=== PATIENT | male | born 1960 | race Hispanic/Latino ===

== ENCOUNTER → 2017-10-30 | Outpatient (CLI) | payer MEDICAID ==
[~2017-10-30] MED LIST: ASPI-1181 PO; ATOR40TA71 PO; BACL10TA PO; CARV6.25 PO; CLON1TAB5 PO; CLOP75TA32 PO; FENO145T37 PO; GABA-531 PO; GLYB5TAB8 PO; INSU300I SQ; LOSA100T29 PO; METF500T6 PO; OMEG-98 PO; PANT40TA25 PO; TAMS0.4C32 PO; VENL-63 PO
== END | disposition home or self-care (01) ==
LOC: RAH 11:41
PROVIDERS: ATTEND Physical Medicine & Rehabilitation
DX: M54.16 Radiculopathy, lumbar region (principal); D18.09 Hemangioma of other sites
CPT/HCPCS: 72148

== ENCOUNTER → 2018-11-21 | Outpatient (CLI) | payer MEDICAID ==
[~2018-11-21] MED LIST changes: +ALBUTEROL SULFATE 0.083% 2.5 MG/3 ML INH IH ONE; +CLON1TAB12 PO; -CLON1TAB5 PO; -LOSA100T29 PO; +LOSA100T58 PO; +METF-444 PO; -METF500T6 PO
== END | disposition home or self-care (01) ==
LOC: RESP 08:09
PROVIDERS: ATTEND Internal Medicine Cardiovascular Disease
DX: J98.8 Other specified respiratory disorders (principal); J45.909 Unspecified asthma, uncomplicated; F17.210 Nicotine dependence, cigarettes, uncomplicated
CPT/HCPCS: 94060; 94727; 94729

== ENCOUNTER → 2018-12-07 | Outpatient (CLI) | payer MEDICAID ==
[~2018-12-07] MED LIST changes: -ALBUTEROL SULFATE 0.083% 2.5 MG/3 ML INH IH ONE
== END | disposition home or self-care (01) ==
LOC: SHCH 07:56
PROVIDERS: ATTEND Internal Medicine Cardiovascular Disease
DX: I11.9 Hypertensive heart disease without heart failure (principal); I35.8 Other nonrheumatic aortic valve disorders
CPT/HCPCS: 93306

== ENCOUNTER → 2018-12-14 | Outpatient (CLI) | payer MEDICAID ==
[~2018-12-14] VITALS: Ht 170.2 cm; Wt 100.2 kg
[~2018-12-14] MED LIST changes: +REGADENOSON 0.4 MG/5 ML PF SYG IVP SCH
== END | disposition home or self-care (01) ==
LOC: SHCH 08:10
PROVIDERS: ATTEND Internal Medicine Cardiovascular Disease
DX: I10 Essential (primary) hypertension (principal); I25.119 Atherosclerotic heart disease of native coronary artery with unspecified angina pectoris
CPT/HCPCS: 78452; 93017; 96374; A9500 ×2; J2785

== ENCOUNTER 2019-01-29 09:03 | Day surgery (SDC) | payer MEDICAID ==
[2019-01-24 11:15] VITALS: BP 149/83
[2019-01-24 11:22] LABS: BASOPHILS % (AUTO) 0.6 % (0.0-5.0); EOSINOPHILS % (AUTO) 1.3 % (0.0-8.0); HEMATOCRIT 42.1 % (42-54); LYMPHOCYTES % (AUTO) 18.3 % (21.0-51.0); MEAN CORPUSCULAR HEMOGLOBIN 28.3 pg (27.0-33.0); MEAN CORPUSCULAR HGB CONC 33.6 g/dL (32.0-36.0); MEAN CORPUSCULAR VOLUME 84.3 fL (79-99); MONOCYTES % (AUTO) 6.8 % (3.0-13.0); PLATELET COUNT (AUTO) 228 K/uL (130-400); RED CELL DISTRIBUTION WIDTH 14.4 % (11.0-15.5); WHITE BLOOD COUNT (AUTO) 8.3 K/uL (4.8-10.8)
[2019-01-24 11:23] LABS: APPEARANCE,URINE Clear (CLEAR); BILIRUBIN,URINE Negative (NEGATIVE); COLOR,URINE Yellow (YELLOW); GLUCOSE, URINE (UA) TRACE mg/dL (NEGATIVE); KETONES,URINE Negative (NEGATIVE); LEUKOCYTE ESTERASE ,URINE Negative (NEGATIVE); NITRATE,URINE Negative (NEGATIVE); OCCULT BLOOD,URINE Negative (NEGATIVE); PH,URINE 6.5 (5.0-8.0); PROTEIN,URINE Trace mg/dL (NEGATIVE)
[2019-01-24 11:27] LABS: CREATININE 0.7 mg/dL (0.5-1.5); POTASSIUM 4.3 mmol/L (3.5-5.1)
[2019-01-24 11:34] LABS: INR 0.98 (0.85-1.15); PARTIAL THROMBOPLASTIN TIME 26.8 SEC (26.3-35.5); PROTHROMBIN TIME 10.3 SEC (9.6-11.6)
[2019-01-24 12:06] LABS: BACTERIA,URINE None Seen /HPF (None Seen); RBC,URINE 0-1 /HPF (0-1); SQUAMOUS EPITHELIAL CELL,UR 0-2 /HPF (0-2); WBC,URINE 0-1 /HPF (0-1)
[~2019-01-29] VITALS: Ht 167.6 cm; Wt 99.3 kg
[2019-01-29] VITALS (12 sets, daily range): BP systolic 123–173; BP diastolic 63–88
[~2019-01-29 09:03] MED LIST changes: +ALBU8.5H8 IH; -ASPI-1181 PO; -BACL10TA PO; -CLON1TAB12 PO; +INSU100V12 SQ; -INSU300I SQ; +LORA1TAB3 PO; -METF-444 PO; +METF-446 PO; -OMEG-98 PO; -PANT40TA25 PO; -REGADENOSON 0.4 MG/5 ML PF SYG IVP SCH; +ROPI0.257 PO; +SODIUM CHLORIDE 0.9% 500ML 500 ML IV SCH; +TRAZ-185 PO; -VENL-63 PO; +VENL225T3 PO; +omega 3 PO; +vitamin d2 PO
[2019-01-29] MEDS ORDERED: SODIUM CHLORIDE 0.9% 1000ML 1,000 ML IV ONE (09:25)
[2019-01-29] MEDS ORDERED: IOHEXOL 350 MG/ML 100ML INFUS..BTL IV ONE (15:25)
[2019-01-29] MEDS ORDERED: IOHEXOL-350 50ML VIAL IV ONE (15:25)
[2019-01-29] MEDS ORDERED: LIDOCAINE HCL 2% 20ML ONE (15:25)
[2019-01-29] MEDS ORDERED: HEPARIN SODIUM 1000UNIT/ML 10ML VIAL ONE (15:25)
[2019-01-29] MEDS ORDERED: NITROGLYCERIN 5 MG/ML 10 ML VIAL IV ONE (15:25)
[2019-01-29] MEDS ORDERED: SODIUM BICARB 50MEQ 50ML VIAL ONE (15:25)
[2019-01-29] MEDS ORDERED: MEPERIDINE-PF 25 MG/ML SYG ONE ×2 (15:40→15:54)
[2019-01-29] MEDS ORDERED: MIDAZOLAM HCL 1 MG/ML 2ML VIAL ONE ×2 (15:40→15:54)
[2019-01-29] MEDS ORDERED: SODIUM CHLORIDE 0.9% 1000ML 1,000 ML IV SCH (16:24)
[2019-01-29] MEDS ORDERED: INSULIN HUMULIN R 100 UNIT/ML 3ML SQ SCH (16:30)
[2019-01-29] MEDS ORDERED: DEXTROSE 50%-WATER 50 ML DISP.SYRIN IV PRN (16:30)
[2019-01-29] MEDS ORDERED: GLUCAGON 1MG KIT 1 MG ML IM PRN (16:30)
[2019-01-29] MEDS ORDERED: ACETAMINOPHEN-CODEINE 300/30MG TAB PO PRN ×2 (16:30)
--- NOTE | 2019-01-29 20:50 | NUR ---
Pt discharged home, tolerating fluids/solids well, ambulating well with cane with stand by assistance, voided large amount prior to discharge. Dressing to right groin remains soft, dry, clean and intact s evidence of bleeding. Pt and cousin instructed in routine and emergency care of cath site. Pt denies any severe pain, nausea or dizziness. Prescription given to cousin. Pt and cousin report no further questions at this time.
== END 2019-01-29 20:50 | disposition home or self-care (01) ==
LOC: DAH 09:03
PROVIDERS: ATTEND Internal Medicine Cardiovascular Disease
DX: I25.118 Atherosclerotic heart disease of native coronary artery with other forms of angina pectoris (principal); I34.0 Nonrheumatic mitral (valve) insufficiency; F41.9 Anxiety disorder, unspecified; F32.9 Major depressive disorder, single episode, unspecified; K21.9 Gastro-esophageal reflux disease without esophagitis; J45.909 Unspecified asthma, uncomplicated; E66.9 Obesity, unspecified; Z88.8 Allergy status to other drugs, medicaments and biological substances; Z79.4 Long term (current) use of insulin; Z79.899 Other long term (current) drug therapy; Z95.5 Presence of coronary angioplasty implant and graft; Z79.84 Long term (current) use of oral hypoglycemic drugs; Z68.35 Body mass index [BMI] 35.0-35.9, adult; Z87.891 Personal history of nicotine dependence; Z83.3 Family history of diabetes mellitus; Z82.49 Family history of ischemic heart disease and other diseases of the circulatory system
CPT/HCPCS: 36415; 71045; 80048; 81001; 82948 ×3; 85025; 85610; 85730; 93005; 93459; A4215; A4216; A4221; A4222; A4223 ×3; A4606; C1760; C1894; J1644; J2175 ×2; J2250 ×2; J3490 ×3; J7030; Q9965; Q9967 ×2; 99156; 99157

== ENCOUNTER → 2021-03-11 | Outpatient (CLI) | payer MEDICAID ==
[~2021-03-11] MED LIST changes: +FENO145T26 PO; -FENO145T37 PO; -SODIUM CHLORIDE 0.9% 500ML 500 ML IV SCH
== END | disposition home or self-care (01) ==
LOC: SHCH 10:08
PROVIDERS: ATTEND Internal Medicine Cardiovascular Disease
DX: I10 Essential (primary) hypertension (principal)
CPT/HCPCS: 93975

== ENCOUNTER → 2021-03-18 | Outpatient (CLI) | payer MEDICAID ==
[2021-03-18 14:44] LABS: CREATININE 0.7 mg/dL (0.5-1.5)
== END | disposition home or self-care (01) ==
LOC: LAB 12:59
PROVIDERS: ATTEND Internal Medicine Cardiovascular Disease
DX: I25.810 Atherosclerosis of coronary artery bypass graft(s) without angina pectoris (principal); I25.5 Ischemic cardiomyopathy
CPT/HCPCS: 36415; 82565; 84520

== ENCOUNTER → 2022-07-20 | Outpatient (CLI) | payer MEDICAID ==
[~2022-07-20] MED LIST changes: +AMLO5TAB4 PO; +ASPI-1005 PO; +FURO40TA7 PO; +HYDR-3420 PO; +SACU1TAB7 PO
== END | disposition home or self-care (01) ==
LOC: SHCH 09:50
PROVIDERS: ATTEND Internal Medicine Cardiovascular Disease
DX: I08.0 Rheumatic disorders of both mitral and aortic valves (principal); I25.10 Atherosclerotic heart disease of native coronary artery without angina pectoris; I10 Essential (primary) hypertension; E78.5 Hyperlipidemia, unspecified; E11.9 Type 2 diabetes mellitus without complications
CPT/HCPCS: 93306

== ENCOUNTER → 2022-07-25 | Outpatient (CLI) | payer MEDICAID ==
[~2022-07-25] MED LIST changes: +REGADENOSON 0.4 MG/5 ML PF SYG IVP SCH
== END | disposition home or self-care (01) ==
LOC: SHCH 07:38
PROVIDERS: ATTEND Internal Medicine Cardiovascular Disease
DX: I51.7 Cardiomegaly (principal); I25.10 Atherosclerotic heart disease of native coronary artery without angina pectoris
CPT/HCPCS: 78452; 96374; 93017; J2785; A9500 ×2

== ENCOUNTER 2022-10-07 07:24 | Inpatient (IN) | payer MEDICAID ==
[2022-10-05 11:50] VITALS: BP 140/66
[2022-10-05 11:58] LABS: BASOPHILS % (AUTO) 0.4 % (0.0-5.0); EOSINOPHILS % (AUTO) 2.6 % (0.0-8.0); HEMATOCRIT 39.7 % (42-54); LYMPHOCYTES % (AUTO) 26.2 % (21.0-51.0); MEAN CORPUSCULAR HEMOGLOBIN 27.6 pg (27.0-33.0); MEAN CORPUSCULAR HGB CONC 31.7 g/dL (32.0-36.0); MEAN CORPUSCULAR VOLUME 87.1 fL (79-99); MONOCYTES % (AUTO) 8.8 % (3.0-13.0); NEUTROPHILS % (AUTO) 61.7 % (40.0-77.0); PLATELET COUNT (AUTO) 207 K/uL (130-400); RED BLOOD CELL COUNT(AUTO) 4.56 MIL/uL (4.50-6.20); RED CELL DISTRIBUTION WIDTH 15.1 % (11.0-15.5)
[2022-10-05 12:05] LABS: APPEARANCE,URINE CLEAR (CLEAR); BILIRUBIN,URINE NEGATIVE (NEGATIVE); COLOR,URINE COLORLESS (YELLOW); GLUCOSE, URINE (UA) 500 mg/dL (NEGATIVE); KETONES,URINE NEGATIVE (NEGATIVE); LEUKOCYTE ESTERASE ,URINE NEGATIVE Leu/uL (NEGATIVE); NITRATE,URINE NEGATIVE (NEGATIVE); OCCULT BLOOD,URINE NEGATIVE (NEGATIVE); PROTEIN,URINE NEGATIVE (NEGATIVE); UROBILINOGEN,URINE 0.2 mg/dL (0.2-1.0)
[2022-10-05 12:09] LABS: INR 0.99 (0.85-1.15); PROTHROMBIN TIME 10.8 SEC (9.6-11.6)
[2022-10-05 12:10] LABS: PARTIAL THROMBOPLASTIN TIME 27.9 SEC (26.3-35.5)
[2022-10-05 12:16] LABS: RBC,URINE 0-1 /HPF (0-1); SQUAMOUS EPITHELIAL CELL,UR RARE /HPF (0-2); WBC,URINE 0-1 /HPF (0-1)
[2022-10-05 12:18] LABS: B-TYPE NATRIURETIC PEPTIDE 666 pg/mL (0-100)
[~2022-10-07] VITALS: Ht 170.2 cm; Wt 93.0 kg
[2022-10-07] VITALS (17 sets, daily range): BP systolic 119–164; BP diastolic 63–84
[~2022-10-07 07:24] MED LIST changes: -ALBU8.5H8 IH; +ALBU90AE2 IH; +AMLO-258 PO; -AMLO5TAB4 PO; +ATOR10TA69 PO; -ATOR40TA71 PO; +BUME1TAB6 PO; +CARV25TA PO; -CARV6.25 PO; +EMPA25TA PO; +ERGOCALCIFEROL PO; +FAMO20TA8 PO; -FENO145T26 PO; -FURO40TA7 PO; -GABA-531 PO; +GABA300C PO; +GLIM4TAB36 PO; -GLYB5TAB8 PO; +HYDR-3830 PO; -INSU100V12 SQ; -LORA1TAB3 PO; +MIRA50TA PO; -REGADENOSON 0.4 MG/5 ML PF SYG IVP SCH; -ROPI0.257 PO; +ROPI1TAB13 PO; +SEMA0.258 SQ; +SERT-439 PO; +TAMS-1 PO; -TAMS0.4C32 PO; -TRAZ-185 PO; +TRAZ-187 PO; -VENL225T3 PO; -omega 3 PO; -vitamin d2 PO
[2022-10-07] MEDS ORDERED: 0.9%NACL 1000ML 1,000 ML IV ONE (08:44)
[2022-10-07] MEDS ORDERED: LIDOCAINE HCL 400MG/20ML VIAL ONE (10:57)
[2022-10-07] MEDS ORDERED: MEPERIDINE-PF 25 MG/ML SYG ONE ×4 (10:57→14:03)
[2022-10-07] MEDS ORDERED: IOHEXOL-350 75 ML VIAL IV ONE ×2 (10:57→12:17)
[2022-10-07] MEDS ORDERED: NITROGLYCERIN 50MG VIAL ONE (10:57)
[2022-10-07] MEDS ORDERED: MIDAZOLAM HCL 1 MG/ML 2ML VIAL ONE ×4 (10:57→14:03)
[2022-10-07] MEDS ORDERED: SODIUM BICARB 50MEQ 50ML VIAL 50 ML ONE (10:57)
[2022-10-07] MEDS ORDERED: HEPARIN 10,000 UNIT/10ML (1,000 UNIT/ML) VIAL ONE ×2 (10:58→13:14)
[2022-10-07] MEDS ORDERED: TEMAZEPAM 30 MG CAP PO PRN (14:00)
[2022-10-07] MEDS ORDERED: NITROGLYCERIN 50MG/D5W 250ML 1 BOT IV PRN (14:00)
[2022-10-07] MEDS ORDERED: ACETAMINOPHEN WITH CODEINE 1 TAB TAB PO PRN ×2 (14:00)
[2022-10-07] MEDS ORDERED: ONDANSETRON 4MG INJ IVP PRN (14:00)
[2022-10-07] MEDS ORDERED: HYDROXYZINE 10 MG TABLET PO PRN (14:30)
[2022-10-07] MEDS ORDERED: ALBUTEROL INHALER 90MCG/INH IH PRN (14:30)
[2022-10-07] MEDS: TAMSULOSIN HCL 0.4 MG CAP.ER.24H PO SCH (20:06)
[2022-10-07] MEDS: CARVEDILOL 25 MG TABLET PO SCH (20:06)
[2022-10-07] MEDS: HYDRALAZINE HCL 10 MG TABLET PO SCH (20:06)
[2022-10-07] MEDS: ROPINIROLE HCL 1 MG TABLET PO SCH (20:06)
[2022-10-07] MEDS: BUMETANIDE 1 MG TAB PO SCH (20:06)
[2022-10-07] MEDS: FAMOTIDINE 20MG TAB PO SCH (20:06)
[2022-10-07] MEDS: GABAPENTIN 300 MG CAPSULE PO SCH (20:07)
[2022-10-07] MEDS: TRAZODONE HCL 100 MG TABLET PO SCH (20:09)
[2022-10-07] MEDS ORDERED: SACUBITRIL/VALSARTAN 1 EACH TABLET PO SCH (21:00)
[2022-10-07] MEDS: INSULIN HUMULIN R 100 UNIT/ML 3ML SQ SCH (21:00)
[2022-10-07] MEDS ORDERED: GLIMEPIRIDE 2 MG TABLET PO SCH (21:00)
[2022-10-08] VITALS (20 sets, daily range): BP systolic 100–146; BP diastolic 65–99
[2022-10-08 04:16] LABS: BASOPHILS % (AUTO) 0.3 % (0.0-5.0); EOSINOPHILS % (AUTO) 1.3 % (0.0-8.0); HEMATOCRIT 37.8 % (42-54); LYMPHOCYTES % (AUTO) 14.9 % (21.0-51.0); MEAN CORPUSCULAR HEMOGLOBIN 27.1 pg (27.0-33.0); MEAN CORPUSCULAR HGB CONC 31.7 g/dL (32.0-36.0); MEAN CORPUSCULAR VOLUME 85.5 fL (79-99); MONOCYTES % (AUTO) 10.3 % (3.0-13.0); NEUTROPHILS % (AUTO) 72.7 % (40.0-77.0); PLATELET COUNT (AUTO) 207 K/uL (130-400); RED BLOOD CELL COUNT(AUTO) 4.42 MIL/uL (4.50-6.20); RED CELL DISTRIBUTION WIDTH 14.6 % (11.0-15.5); WHITE BLOOD COUNT (AUTO) 7.9 K/uL (4.8-10.8)
[2022-10-08 04:30] LABS: ALBUMIN 3.6 g/dL (3.5-5.0); CREATININE 1.1 mg/dL (0.5-1.5); MAGNESIUM 2.3 mg/dL (1.80-2.40); TOTAL PROTEIN, SERUM 6.7 g/dL (6.0-8.3)
[2022-10-08 05:05] LABS: HEMOGLOBIN A1C 8.4 % (4.0-6.0)
[2022-10-08] MEDS: INSULIN HUMULIN R 100 UNIT/ML 3ML SQ SCH ×4 (07:30→21:00)
[2022-10-08] MEDS: CLOPIDOGREL 75MG TAB PO SCH (08:04)
[2022-10-08] MEDS: SERTRALINE HCL 50 MG TABLET PO SCH (08:04)
[2022-10-08] MEDS: TAMSULOSIN HCL 0.4 MG CAP.ER.24H PO SCH ×2 (08:04→20:58)
[2022-10-08] MEDS: ASPIRIN 81MG CHEW TAB PO SCH (08:04)
[2022-10-08] MEDS: FAMOTIDINE 20MG TAB PO SCH ×2 (08:04→20:59)
[2022-10-08] MEDS: PANTOPRAZOLE 40 MG TAB DR PO SCH (08:04)
[2022-10-08] MEDS: CARVEDILOL 25 MG TABLET PO SCH ×2 (08:05→20:59)
[2022-10-08] MEDS: AMLODIPINE 5 MG TAB PO SCH (08:05)
[2022-10-08] MEDS: HYDRALAZINE HCL 10 MG TABLET PO SCH ×2 (08:06→14:29)
[2022-10-08] MEDS: GABAPENTIN 300 MG CAPSULE PO SCH ×3 (08:06→20:58)
[2022-10-08] MEDS: BUMETANIDE 1 MG TAB PO SCH ×2 (08:11→20:58)
[2022-10-08] MEDS: MYRBETRIQ 50 MG PO SCH (08:15)
[2022-10-08] MEDS ORDERED: LOSARTAN 100 MG TABLET PO SCH (09:00)
[2022-10-08 15:44] LABS: MAGNESIUM 2.2 mg/dL (1.80-2.40); POTASSIUM 3.4 mmol/L (3.5-5.1)
[2022-10-08] MEDS ORDERED: KCL 20 MEQ ERTAB PO ONE (15:55)
[2022-10-08] MEDS: SACUBITRIL/VALSARTAN 1 EACH TABLET PO SCH (20:58)
[2022-10-08] MEDS: TRAZODONE HCL 100 MG TABLET PO SCH (20:58)
[2022-10-08] MEDS: ROPINIROLE HCL 1 MG TABLET PO SCH (20:59)
[2022-10-09 00:15] VITALS: BP 134/80
[2022-10-09 03:15] VITALS: BP 117/74
[2022-10-09 03:42] LABS: HEMATOCRIT 36.8 % (42-54); MEAN CORPUSCULAR HEMOGLOBIN 27.9 pg (27.0-33.0); MEAN CORPUSCULAR HGB CONC 33.2 g/dL (32.0-36.0); MEAN CORPUSCULAR VOLUME 84.2 fL (79-99); RED BLOOD CELL COUNT(AUTO) 4.37 MIL/uL (4.50-6.20); RED CELL DISTRIBUTION WIDTH 14.6 % (11.0-15.5); WHITE BLOOD COUNT (AUTO) 7.4 K/uL (4.8-10.8)
[2022-10-09 03:57] LABS: CREATININE 0.9 mg/dL (0.5-1.5); POTASSIUM 3.4 mmol/L (3.5-5.1)
[2022-10-09] MEDS: INSULIN HUMULIN R 100 UNIT/ML 3ML SQ SCH ×2 (06:20→11:30)
[2022-10-09 07:44] VITALS: BP 115/72
[2022-10-09] MEDS: ASPIRIN 81MG CHEW TAB PO SCH (08:31)
[2022-10-09] MEDS: PANTOPRAZOLE 40 MG TAB DR PO SCH (08:31)
[2022-10-09] MEDS: TAMSULOSIN HCL 0.4 MG CAP.ER.24H PO SCH (08:31)
[2022-10-09] MEDS: GABAPENTIN 300 MG CAPSULE PO SCH (08:31)
[2022-10-09] MEDS: CLOPIDOGREL 75MG TAB PO SCH (08:31)
[2022-10-09] MEDS: SACUBITRIL/VALSARTAN 1 EACH TABLET PO SCH (08:31)
[2022-10-09] MEDS: SERTRALINE HCL 50 MG TABLET PO SCH (08:32)
[2022-10-09] MEDS: CARVEDILOL 25 MG TABLET PO SCH (08:32)
[2022-10-09] MEDS: FAMOTIDINE 20MG TAB PO SCH (08:32)
[2022-10-09] MEDS: BUMETANIDE 1 MG TAB PO SCH (08:32)
[2022-10-09] MEDS: AMLODIPINE 5 MG TAB PO SCH (08:38)
[2022-10-09] MEDS: MYRBETRIQ 50 MG PO SCH (08:41)
[2022-10-09] MEDS ORDERED: SPIRONOLACTONE 25 MG TAB PO SCH (09:00)
[2022-10-09] MEDS ORDERED: KCL 20 MEQ ERTAB PO ONE (11:30)
[2022-10-09 11:54] VITALS: BP 126/68
[2022-10-14] MEDS ORDERED: OZEMPIC 0.25 MG SQ SCH (09:00)
[2022-10-14] MEDS ORDERED: ERGOCALCIFEROL (VITAMIN D2) 50,000 UNIT CAPSULE PO SCH (09:00)
== END 2022-10-09 12:50 | disposition home or self-care (01) | DRG 178 ==
LOC: DAH 07:24 → DAHIP 07:25 → DAH 07:25 → 2CH 15:20 → 2AH 10-08 18:31
PROVIDERS: ADMIT Internal Medicine; ATTEND Internal Medicine
PROC: 4A023N7 Measurement of Cardiac Sampling and Pressure, Left Heart, Percutaneous Approach (ICD-10-PCS; principal; 2022-10-07)
PROC: 02HA3RZ Insertion of Short-term External Heart Assist System into Heart, Percutaneous Approach (ICD-10-PCS; 2022-10-07)
PROC: B2111ZZ Fluoroscopy of Multiple Coronary Arteries using Low Osmolar Contrast (ICD-10-PCS; 2022-10-07)
PROC: 027237Z Dilation of Coronary Artery, Three Arteries with Four or More Drug-eluting Intraluminal Devices, Percutaneous Approach (ICD-10-PCS; 2022-10-07)
PROC: 5A0221D Assistance with Cardiac Output using Impeller Pump, Continuous (ICD-10-PCS; 2022-10-07)
PROC: 02703ZZ Dilation of Coronary Artery, One Artery, Percutaneous Approach (ICD-10-PCS; 2022-10-07)
DX: T82.855A Stenosis of coronary artery stent, initial encounter (principal); I47.20 Ventricular tachycardia, unspecified; I11.0 Hypertensive heart disease with heart failure; I50.20 Unspecified systolic (congestive) heart failure; I25.10 Atherosclerotic heart disease of native coronary artery without angina pectoris; E11.9 Type 2 diabetes mellitus without complications; I25.5 Ischemic cardiomyopathy; E66.09 Other obesity due to excess calories; E78.5 Hyperlipidemia, unspecified; Y83.1 Surgical operation with implant of artificial internal device as the cause of abnormal reaction of the patient, or of later complication, without mention of misadventure at the time of the procedure; Z68.32 Body mass index [BMI] 32.0-32.9, adult
CPT/HCPCS: 33990; 36415; 71045; 80048; 80053; 80061; 81001; 82948; 83036; 83735; 83880; 84132; 85025; 85027; 85610; 85730; 93005; 93459; 99156; 99157; A4606; C1760; C1769; C1887; C1894; C9600; C9604; G0378; J1644; J2175; J2250; J3490; J7030; Q9967

== ENCOUNTER → 2022-10-20 | Outpatient (CLI) | payer MEDICAID ==
[~2022-10-20] MED LIST changes: -HYDR-3420 PO; -LOSA100T58 PO; -SACU1TAB7 PO
[2022-10-20 16:17] LABS: BASOPHILS % (AUTO) 0.5 % (0.0-5.0); EOSINOPHILS % (AUTO) 2.7 % (0.0-8.0); HEMATOCRIT 44.1 % (42-54); LYMPHOCYTES % (AUTO) 19.8 % (21.0-51.0); MEAN CORPUSCULAR HEMOGLOBIN 27.3 pg (27.0-33.0); MEAN CORPUSCULAR HGB CONC 31.7 g/dL (32.0-36.0); MONOCYTES % (AUTO) 8.3 % (3.0-13.0); NEUTROPHILS % (AUTO) 68.4 % (40.0-77.0); PLATELET COUNT (AUTO) 315 K/uL (130-400); RED BLOOD CELL COUNT(AUTO) 5.13 MIL/uL (4.50-6.20); RED CELL DISTRIBUTION WIDTH 13.9 % (11.0-15.5); WHITE BLOOD COUNT (AUTO) 9.2 K/uL (4.8-10.8)
[2022-10-20 16:33] LABS: ALBUMIN 4.3 g/dL (3.5-5.0); CREATININE 1.1 mg/dL (0.5-1.5); MAGNESIUM 2.3 mg/dL (1.80-2.40); POTASSIUM 4.3 mmol/L (3.5-5.1); TOTAL PROTEIN, SERUM 8.3 g/dL (6.0-8.3)
== END | disposition home or self-care (01) ==
LOC: LAB 11:46
PROVIDERS: ATTEND Physician Assistant
DX: I10 Essential (primary) hypertension (principal); E78.5 Hyperlipidemia, unspecified
CPT/HCPCS: 36415; 80053; 83735; 85025

== ENCOUNTER → 2023-09-13 | Outpatient (CLI) | payer MEDICAID ==
[~2023-09-13] MED LIST changes: -ROPI1TAB13 PO; +ROPI1TAB46 PO
== END | disposition home or self-care (01) ==
LOC: SHCH 10:49
PROVIDERS: ATTEND Internal Medicine Cardiovascular Disease
DX: I35.8 Other nonrheumatic aortic valve disorders (principal); I25.10 Atherosclerotic heart disease of native coronary artery without angina pectoris; I10 Essential (primary) hypertension; E78.5 Hyperlipidemia, unspecified; E11.9 Type 2 diabetes mellitus without complications
CPT/HCPCS: 93306

== ENCOUNTER 2023-11-13 08:29 | Day surgery (SDC) | payer MEDICAID ==
[2023-11-10 09:20] LABS: BASOPHILS # (AUTO) 0.09 K/uL (0.00-0.20); BASOPHILS % (AUTO) 0.9 % (0.0-5.0); EOSINOPHILS # (AUTO) 0.18 K/uL (0.00-0.70); EOSINOPHILS % (AUTO) 1.8 % (0.0-8.0); HEMATOCRIT 49.2 % (42-54); IMMATURE GRANULOCYTE ABSOLUTE 0.04 K/uL (0-1); LYMPHOCYTES # (AUTO) 3.1 K/uL (1.0-4.8); LYMPHOCYTES % (AUTO) 30.2 % (21.0-51.0); MEAN CORPUSCULAR HGB CONC 33.9 g/dL (32.0-36.0); MEAN CORPUSCULAR VOLUME 82.6 fL (79-99); MONOCYTES # (AUTO) 0.8 K/uL (0.1-1.0); MONOCYTES % (AUTO) 7.5 % (3.0-13.0); NEUTROPHILS % (AUTO) 59.2 % (40.0-77.0); PLATELET COUNT (AUTO) 293 K/uL (130-400); RED BLOOD CELL COUNT(AUTO) 5.96 MIL/uL (4.50-6.20); RED CELL DISTRIBUTION WIDTH 13.1 % (11.0-15.5); WHITE BLOOD COUNT (AUTO) 10.1 K/uL (4.8-10.8)
[2023-11-10 09:27] LABS: CREATININE 1.1 mg/dL (0.5-1.3); POTASSIUM 3.9 mmol/L (3.5-5.1)
[2023-11-10 09:29] LABS: INR 0.95 (0.85-1.15); PROTHROMBIN TIME 11.2 SEC (9.6-11.6)
[2023-11-10 09:30] LABS: PARTIAL THROMBOPLASTIN TIME 26.8 SEC (26.3-35.5)
[2023-11-10 10:42] VITALS: BP_SYST 134; BP_SYST 162; BP_DIAS 66; BP_DIAS 85; PULSE 61; PULSE 99; RESP 17; RESP 20
[2023-11-10 10:52] VITALS: PULSE 99; RESP 20
[2023-11-13] VITALS (7 sets, daily range): BP systolic 118–135; BP diastolic 65–89; PULSE 86–102; RESP 14–16
[~2023-11-13] VITALS: Ht 170.2 cm; Wt 92.4 kg
[~2023-11-13 08:29] MED LIST changes: +ACET-66 PO; -ALBU90AE2 IH; +ALBU90AE3 IH; -CARV25TA PO; +DULA0.75 SQ; +DULO40CA2 PO; -ERGOCALCIFEROL PO; +GABA600T10 PO; -GLIM4TAB36 PO; +HYDR-3422 PO; +SACU1TAB4 PO; -SEMA0.258 SQ; -SERT-439 PO; +SPIR25TA6 PO; -TAMS-1 PO; -TRAZ-187 PO
[2023-11-13] MEDS ORDERED: MIDAZOLAM HCL 1 MG/ML 2ML VIAL IVP ONE (10:00)
[2023-11-13] MEDS ORDERED: FENTANYL CITRATE PF 50 MCG/1 ML 2ML VIAL IVP ONE (10:00)
[2023-11-13] MEDS: 0.9%NACL 1000ML 1,000 ML IV SCH (10:13)
[2023-11-13] MEDS: LIDOCAINE HCL 2% VISCOUS 15 ML UDCUP ONE (10:14)
== END 2023-11-13 16:00 | disposition home or self-care (01) ==
LOC: DAH 08:29 → EDSTATUS 10:00 → DAH 16:00
PROVIDERS: ATTEND Internal Medicine Cardiovascular Disease
DX: I08.0 Rheumatic disorders of both mitral and aortic valves (principal); I25.10 Atherosclerotic heart disease of native coronary artery without angina pectoris; I25.2 Old myocardial infarction; I25.5 Ischemic cardiomyopathy; E11.9 Type 2 diabetes mellitus without complications; E66.9 Obesity, unspecified; E78.5 Hyperlipidemia, unspecified; K21.9 Gastro-esophageal reflux disease without esophagitis; J45.909 Unspecified asthma, uncomplicated; F41.9 Anxiety disorder, unspecified; F32.A Depression, unspecified; Z95.5 Presence of coronary angioplasty implant and graft; Z79.82 Long term (current) use of aspirin; Z79.01 Long term (current) use of anticoagulants; Z79.899 Other long term (current) drug therapy; Z79.84 Long term (current) use of oral hypoglycemic drugs; Z68.34 Body mass index [BMI] 34.0-34.9, adult
CPT/HCPCS: 80048; 85025; 85610; 85730; 36415; 93005; 93312; 82948; 93325; J3010; J7030; J2250; A4615; A4215; A4657; A4222; A4221; A4663; A4216; A4606; A4223 ×3; 99152; G0500

== ENCOUNTER → 2024-09-25 | Outpatient (CLI) | payer MEDICAID ==
[~2024-09-25] MED LIST changes: +GABA-1405 PO; -GABA600T10 PO
[2024-09-25 12:56] LABS: BILIRUBIN,TOTAL 0.3 mg/dL (0.2-1.0); CREATININE 1.1 mg/dL (0.5-1.3); POTASSIUM 4.5 mmol/L (3.5-5.1); TOTAL PROTEIN, SERUM 7.4 g/dL (6.0-8.3)
== END | disposition home or self-care (01) ==
LOC: LAB 09-24 13:44
PROVIDERS: ATTEND Internal Medicine Cardiovascular Disease
DX: I11.0 Hypertensive heart disease with heart failure (principal); I50.9 Heart failure, unspecified
CPT/HCPCS: 36415; 80053; 80061; 83880

== ENCOUNTER 2025-01-17 06:45 | Day surgery (SDC) | payer MEDICAID ==
--- NOTE | 2025-01-14 12:28 | EKG ---
[facility] Test Date: 2025-01-14 Test Time: 12:13:04 Pat Name: DEYANIRA SOLARES Department: [facility] Room: Gender: M Platform Consultant: [id number] : 1960 Requested By: Hamida LIEBERMAN Order Number: [id number] Reading MD: Dilan Samuel Measurements Intervals [place] Rate: 89 P: 49 [place]: 143 QRS: 58 QRSD: 110 T: 106 QT: 359 QTc: 437 Interpretive Statements Sinus rhythm Probable left atrial enlargement Nonspecific T abnormalities, lateral leads Borderline ST elevation, anterior leads Compared to ECG 11/10/2023 07:47:56 T-wave abnormality now present Left ventricular hypertrophy no longer present Early repolarization no longer present Myocardial infarct finding still present ST (T wave) deviation still present Electronically Signed On 01-14-2025 15:04:37 CDT by Dlian Samuel Please click the below link to view image of tracing.
[2025-01-14 12:37] VITALS: BP 116/66; PULSE 90; RESP 17; TEMP 97.3
[2025-01-14 12:50] LABS: IMMATURE GRANULOCYTE ABSOLUTE 0.04 K/uL (0-1); NUCLEATED RED BLOOD CELLS 0.0 % (0.0-0.19); PLATELET COUNT (AUTO) 315 K/uL (130-400); RED BLOOD CELL COUNT(AUTO) 6.17 MIL/uL (4.50-6.20); RED CELL DISTRIBUTION WIDTH 14.5 % (11.0-15.5); WHITE BLOOD COUNT (AUTO) 11.3 K/uL (4.8-10.8)
[2025-01-14 12:56] LABS: CREATININE 1.3 mg/dL (0.5-1.3); GLOMERULAR FILTR. RATE CALC 61.0 mL/min (>90); GLUCOSE,RANDOM 205.0 mg/dL (70-105); SODIUM SERUM 139.0 mmol/L (136-145); UREA NITROGEN, BLOOD 26.0 mg/dL (7-18)
[2025-01-14 13:03] LABS: INR 1.05 (0.85-1.15)
--- NOTE | 2025-01-16 12:27 | NUR ---
REPORT REPORTED WBC TO ALEX BRASHER NP. OK TO PROCEED
[~2025-01-17] VITALS: Ht 170.2 cm; Wt 103.2 kg
[2025-01-17] VITALS (10 sets, daily range): BP systolic 114–148; BP diastolic 65–84; PULSE 82–92; RESP 14–17; TEMP 97–97.5
[~2025-01-17 06:45] MED LIST changes: -ACET-66 PO; -BUME1TAB6 PO; +BUME2TAB5 PO; +CARV6.25 PO; -DULA0.75 SQ; -DULO40CA2 PO; +DULO60CA64 PO; +ERGO500093 PO; -GABA-1405 PO; +HYDR-3421 PO; -HYDR-3422 PO; +INSU200I4 SQ; -SPIR25TA6 PO; +TAMS-55 PO
--- NOTE | 2025-01-17 07:30 | NUR ---
DR. LIEBERMAN AT BEDSIDE ASSESSING PT D/T WBC PENDING UA RESULTS
[2025-01-17 07:52] LABS: APPEARANCE,URINE CLEAR (CLEAR); GLUCOSE, URINE (UA) >=1000 mg/dL (NEGATIVE); LEUKOCYTE ESTERASE ,URINE NEGATIVE Leu/uL (NEGATIVE); NITRATE,URINE NEGATIVE (NEGATIVE); OCCULT BLOOD,URINE NEGATIVE (NEGATIVE)
[2025-01-17 07:55] LABS: ADD UA MICROSCOPIC YES
[2025-01-17] MEDS ORDERED: SODIUM BICARB 50MEQ 50ML VIAL 0 ML ONE (08:18)
[2025-01-17] MEDS ORDERED: LIDOCAINE HCL 1% MDV 50ML VIAL ONE (08:18)
[2025-01-17] MEDS ORDERED: IODIXANOL 320 MG/ML 100 ML VIAL ONE (08:21)
[2025-01-17] MEDS ORDERED: MIDAZOLAM HCL 1 MG/ML 2ML VIAL ONE ×3 (08:52→09:11)
[2025-01-17] MEDS ORDERED: DEXTROSE 50%-WATER 50 ML DISP.SYRIN IV PRN (11:00)
--- NOTE | 2025-01-17 11:25 | NUR ---
ICE PACK APPLIED TO LEFT CHEST PT IN NAD VSS
--- NOTE | 2025-01-17 15:10 | NUR ---
PRESSURE DRESSING LEFT CHEST REMOVED DRESSING WAS MARKED WHERE DRY BLOOD WAS NOTED.
--- NOTE | 2025-01-17 15:50 | NUR ---
BOTH PT AND PARTNER GIVEN VERBAL AND WRITTEN DISCHARGE INSTRUCTIONS. IV REMOVED SITE ASYMPTOMATIC. PT TAKEN OUT VIA WHEELCHAIR PARTNER DRIVING
--- NOTE | 2025-01-17 15:51 | HMCIMG ---
EXAM: CR Chest, 2 View. CLINICAL HISTORY: s/p icd insertion COMPARISON: Radiograph from October 05, 2022. FINDINGS: LUNGS: There is no mass, infiltrate, or acute pulmonary abnormality. PLEURAL SPACES: No evidence of pleural effusion or pneumothorax. MEDIASTINUM: AICD leads overlie the right atrium and right ventricle. Mild cardiomegaly. Mild central pulmonary vascular congestion. BONES: No aggressive appearing osseous lesion seen. IMPRESSION: 1. No acute cardiopulmonary findings. 2. Satisfactory positioning of AICD leads. Mild cardiomegaly with mild central pulmonary vascular congestion. /[place]
== END 2025-01-17 16:05 | disposition home or self-care (01) ==
LOC: DAH 06:45
PROVIDERS: ATTEND Internal Medicine Cardiovascular Disease
DX: I25.5 Ischemic cardiomyopathy (principal); I50.22 Chronic systolic (congestive) heart failure; I25.10 Atherosclerotic heart disease of native coronary artery without angina pectoris; K21.9 Gastro-esophageal reflux disease without esophagitis; J45.909 Unspecified asthma, uncomplicated; E66.9 Obesity, unspecified; F41.9 Anxiety disorder, unspecified; F32.A Depression, unspecified; G25.81 Restless legs syndrome; I25.2 Old myocardial infarction; Z95.1 Presence of aortocoronary bypass graft; Z68.36 Body mass index [BMI] 36.0-36.9, adult; Z79.82 Long term (current) use of aspirin; Z79.84 Long term (current) use of oral hypoglycemic drugs; Z79.899 Other long term (current) drug therapy
CPT/HCPCS: 80048; 85025; 85610; 85730; 36415; 93005; 33249; 82948; 81001; 71045; 99156; 99157 ×5; J1815; C1777; C1898; C1721; C1894; J3010; J0690 ×2; J0665; J2250 ×3; J3490; Q9967; A4215; A4222; A4221; A4663; A4216; A4606; A4223 ×3